=== PATIENT | male | born 1995 | race African-American/Black ===

== ENCOUNTER 2020-01-12 05:57 | Emergency (ER) | payer SELFPAY ==
--- NOTE | ~2020-01-12 | CT_ITS ---
EXAMINATION: CT abdomen pelvis wo con DATE: 01/12/2020 07:35 INDICATION: Right lower quadrant abdominal pain. TECHNIQUE: Computed tomography (CT) of the abdomen and pelvis was performed with 100 mL Omnipaque-350 intravenous contrast. Automated exposure control and iterative reconstruction technique were employe d. The dose-length product was 556.17 mGy-cm. COMPARISON: None FINDINGS: Lung bases are clear. Heart size is normal. No pericardial or pleural effusion. Liver, gallbladder, s pleen, pancreas, bilateral adrenal glands and kidneys are normal. Normal appendix with no periappendi ceal inflammatory stranding to suggest acute appendicitis. No bowel obstruction or abnormal bowel wal l thickening. Bladder is normal. Tiny fat-containing left inguinal hernia. No free intraperitoneal ga s or fluid. No pathologically enlarged abdominal or pelvic lymphadenopathy. Bones are unremarkable. IMPRESSION: 1. Normal appendix. No acute intra-abdominal/pelvic process. Reviewed, dictated and finalized at location A.
[2020-01-12 05:59] VITALS: BP 145/78; PULSE 85; RESP 22; TEMP 36.3; O2SAT 100
[2020-01-12 06:20] LABS: Basophils Absolute Auto 0.1 K/mm3 (0.0-0.1); Basophils Percent Auto 0.4 % (0.2-1.2); Eosinophils Absolute Auto 0.1 K/mm3 (0-0.3); Eosinophils Percent Auto 0.9 % (0-4.4); Hemoglobin 15.8 g/dL (14.0-18.0); Immature Granulocyte Absolute 0.06 K/mm3 (0.00-0.031); Immature Granulocyte Percent A 0.5 % (0-0.5); Lymphocytes Absolute Auto 2.82 K/mm3 (0.9-3.2); Lymphocytes Percent Auto 21.4 % (18.3-44.2); Mean Corpuscular HGB Conc 32.9 g/dl (32-36); Mean Corpuscular Hemoglobin 30.7 pg (26-34); Mean Corpuscular Volume 93.4 fl (80-100); Monocytes Absolute Auto 1.4 K/mm3 (0.1-0.6); Monocytes Percent Auto 10.9 % (2.6-8.5); Neutrophils Absolute Auto 8.7 K/mm3 (1.3-6.7); Neutrophils Percent Auto 65.9 % (45.5-73.1); Platelet Count Result 220 k/mm3 (150-375); Red Blood Count 5.14 M/mm3 (4.6-6.20); Red Cell Distribution Width 13.2 % (11.5-14.5); White Blood Count 13.2 K/mm3 (4.5-10.0)
[2020-01-12] MEDS: PROMETHAZINE HCL 25 MG/ML AMPUL 12.5 MG IV PUSH (06:24)
[2020-01-12] MEDS: KETOROLAC 30 MG/ML VIAL (*BKC) IV PUSH (06:24)
[2020-01-12 06:39] LABS: Lipase 135 U/L (23-300)
[2020-01-12 07:24] LABS: Add Urine Microscopic? YES; Appearance Urine Clear (Clear); Bacteria Urine Trace /hpf; Bilirubin Urine Negative (Negative); Blood Urine 3+ (Negative); Color Urine Straw (Yellow); Glucose Urine UA Negative (Negative); Ketones Urine Negative (Negative); Leukocyte Esterase Ur Negative LEU/UL (Negative); Mucus Urine Rare /lpf; Nitrate Urine Negative (Negative); Protein Urine Negative (Negative); Specific Grav Ur 1.005 (1.001-1.035); Urobilinogen Urine Negative mg/dL (<2.0); WBC Urine 0-3 /hpf
[2020-01-12] MEDS: ONDANSETRON INJ 4 MG/2 ML VIAL IV PUSH (07:25)
[2020-01-12] MEDS: MORPHINE SULFATE (*CRX) 4 MG/ML INJ IV PUSH (07:26)
[2020-01-12 07:34] LABS: Alanine Aminotransferase 33 U/L (4-50); Albumin Level 4.5 g/dL (3.5-5.1); Alkaline Phosphatase 54 U/L (38-126); Anion Gap 8 mmol/L (8-16); Aspartate Amino Transferase 32 U/L (17-59); Bilirubin,Total 0.3 mg/dL (0.2-1.3); Blood Urea Nitrogen 18 mg/dL (9-20); Calcium 8.9 mg/dL (8.4-10.2); Carbon Dioxide 29 mmol/L (22-30); Chloride 104 mmol/L (98-107); Estimated CRCL calculation 130 ml/min; Estimated Glomerular Filt Rate > 60; Glucose 101 mg/dL (75-110); Potassium 3.8 mmol/L (3.4-5.0); Sodium 141 mmol/L (137-145)
[2020-01-12] MEDS: SODIUM CHLORIDE 0.9% IV 1,000 ML 999 ML IV CONT (07:50)
--- NOTE | 2020-01-12 09:10 | ED.GENADULT ---
HPI - General Adult General Chief complaint: Abdominal Pain Stated complaint: rlq abd pain Time Seen by Provider: 01/12/20 07:02 History of Present Illness HPI narrative: Patient is a 24-year-old male who presents ER with right-sided abdominal pain. Sudden onset this morning. Radiates from back down into groin. Makes him feel like he needs to have a bowel movement. He was able to have bowel movement but did not alleviate the pain. No urinary frequency/urgency but did also have feeling a need to pee. Denies fevers or chills or sweats. No nausea/vomiting. Related Data Allergies Allergy/AdvReac Type Severity Reaction Status Date / Time No Known Allergies Allergy Verified 01/12/20 06:18 Review of Systems Review of Systems: All systems reviewed & are unremarkable except as noted in HPI and below Constitutional: Constitutional: Denies chills, Denies fever(s) and Denies weakness Gastrointestinal: Gastrointestinal: Reports abdominal pain, Denies nausea and Denies vomiting Genitourinary: Genitourinary: Denies hematuria, Denies dysuria and Denies urinary frequency PMFSH Past Medical History Medical History (Updated 01/12/20 @ 09:15 by Kashif Hurt MD) Healthy adult male Surgical History Surgical History (Updated 01/12/20 @ 09:11 by Kashif Hurt MD) No history of previous surgery Social History Social History (Updated 01/12/20 @ 09:11 by Kashif Hurt MD) Substance use type: marijuana Gender identity (if verbalized by the patient): Male Exam Narrative: Exam Narrative: GENERAL: Well-appearing, well-nourished, and in no acute distress. HEAD: Normocephalic, atraumatic. ENT: Mucous membranes moist. CHEST: Clear to auscultation. No respiratory distress. HEART: Regular rate and rhythm. Normal peripheral pulses. ABDOMEN: Soft, mild tenderness right upper quadrant and right lower quadrant without McBurney's point tenderness, nondistended, normal active bowel sounds. EXTREMITIES: Normal range of motion. No edema. SKIN: Warm, dry, no rash. NEURO: Alert and oriented x3. Course Course Emergency Course: Patient improved pain with Toradol and morphine. Patient with some hematuria but no stone or appendicitis on CT scan. Patient may have passed a small stone previously. Vital Signs Vital signs: Vital Signs Temperature 97.4 F L 01/12/20 05:59 Pulse Rate 85 01/12/20 05:59 Respiratory Rate 22 H 01/12/20 05:59 Blood Pressure 145/78 H 01/12/20 05:59 Pulse Oximetry 100 01/12/20 05:59 Temperature 97.4 F L 01/12/20 05:59 Pulse Rate 85 01/12/20 05:59 Respiratory Rate 22 H 01/12/20 05:59 Blood Pressure 145/78 H 01/12/20 05:59 Pulse Oximetry 100 01/12/20 05:59 Medical Decision Making Vital Signs Vital Signs: Vital Signs Temperature 97.4 F L 01/12/20 05:59 Pulse Rate 85 01/12/20 05:59 Respiratory Rate 22 H 01/12/20 05:59 Blood Pressure 145/78 H 01/12/20 05:59 Pulse Oximetry 100 01/12/20 05:59 Temperature 97.4 F L 01/12/20 05:59 Pulse Rate 85 01/12/20 05:59 Respiratory Rate 22 H 01/12/20 05:59 Blood Pressure 145/78 H 01/12/20 05:59 Pulse Oximetry 100 01/12/20 05:59 Lab Data Result diagrams: 01/12/20 06:13 01/12/20 06:42 Labs: Lab Results 01/12/20 01/12/20 01/12/20 Range/Units 06:13 06:13 06:36 WBC 13.2 H (4.5-10.0) K/mm3 RBC 5.14 (4.6-6.20) M/mm3 Hgb 15.8 (14.0-18.0) g/dL Hct 48.0 (42.0-52.0) % MCV 93.4 (80-100) fl MCH 30.7 (26-34) pg MCHC 32.9 (32-36) g/dl RDW 13.2 (11.5-14.5) % Plt Count 220 (150-375) k/mm3 MPV 10.0 (7.4-10.4) fl Immature Gran % (Auto) 0.5 (0-0.5) % Neut % (Auto) 65.9 (45.5-73.1) % Lymph % (Auto) 21.4 (18.3-44.2) % Clinch % (Auto) 10.9 H (2.6-8.5) % Eos % (Auto) 0.9 (0-4.4) % Baso % (Auto) 0.4 (0.2-1.2) % Lymph # (Auto) 2.82 (0.9-3.2) K/mm3 Clinch # (Auto) 1.4 H (0.1-0.6) K/mm3 Eos # (
[2020-01-12 09:20] VITALS: BP 117/80; PULSE 74; RESP 16; O2SAT 97
== END 2020-01-12 09:20 | disposition home or self-care (01) ==
PROVIDERS: Emergency Medicine; Emergency Provider Emergency Medicine
DX: R10.30 Lower abdominal pain, unspecified (principal)
CPT/HCPCS: 36415; 74176; 80053; 81001; 83690; 85025; 96361; 96374; 96375; 99284; J1885; J2270; J2405; J2550; J7030